=== PATIENT | male | born 1955 ===

== ENCOUNTER 2016-12-26 15:26 | Emergency (ER) | payer BC ==
[2016-12-26 16:00] VITALS: BP 145/88; PULSE 62; RESP 18; TEMP 98.8; O2SAT 98
--- NOTE | 2016-12-26 16:57 | C.PDOC ---
History Of Present Illness 61 yr old male presents to the ER requesting heroin detox. Patient reports he uses 4 bags a day. Denies fever, chest pain, SOB, nausea, vomiting, weakness or numbness. Time Seen by Provider: 12/26/16 16:22 Chief Complaint (Nursing): Substance Abuse History Per: Patient History/Exam Limitations: no limitations Onset/Duration Of Symptoms: Persistent Current Symptoms Are (Timing): Still Present Past Medical History Reviewed: Historical Data, Nursing Documentation, Vital Signs Vital Signs: Last Vital Signs Temp 98.8 F 12/26/16 15:54 Pulse 62 12/26/16 15:54 Resp 18 12/26/16 15:54 BP 145/88 12/26/16 15:54 Pulse Ox 98 12/26/16 17:44 - Medical History PMH: Anxiety, Asthma, Bronchitis, Fractures (WRIST/NOSE/LEG/CASTED NO SURGERY), Pneumonia (1 yr ago) - [facility] Procedures EXCISE EPIDIDYMIS CYST (04/06/14) EXCISION OF HYDROCELE (06/09/14) ING HERNIA REP-GRAFT NOS (04/06/14) INJECT/INFUSE NEC (05/20/13) LARYGNOSCOPY AND OTH TRACHEOSCOPY (03/04/14) SKIN & SUBQ INCISION NEC (03/04/14) Family History: States: No Known Family Hx - Social History Hx Tobacco Use: Yes Hx Alcohol Use: No (RECOVERED X9YRS) Hx Substance Use: Yes - Immunization History Hx Tetanus Toxoid Vaccination: No Hx Influenza Vaccination: No Hx Pneumococcal Vaccination: No Review Of Systems Except As Marked, All Systems Reviewed And Found Negative. Constitutional: Negative for: Fever Cardiovascular: Negative for: Chest Pain Respiratory: Negative for: Shortness of Breath Gastrointestinal: Negative for: Nausea, Vomiting Neurological: Negative for: Weakness, Numbness Physical Exam - Physical Exam Appears: Non-toxic, No Acute Distress Skin: Warm, Dry, No Rash Head: Atraumatic, Normacephalic Oral Mucosa: Moist Chest: Symmetrical, No Tenderness Cardiovascular: Rhythm Regular, No Murmur Respiratory: Normal Breath Sounds, No Rales, No Rhonchi, No Wheezing Extremity: Normal ROM, No Swelling Neurological/Psych: Oriented x3, Normal Speech, Normal Motor ED Course And Treatment O2 Sat by Pulse Oximetry: 98 Medical Decision Making Medical Decision Making: NOTE: Crisis made aware regarding patient. No detox beds available at the moment. Disposition - Disposition Referrals: Dane Salazar MD [Staff Provider] - Disposition: HOME/ ROUTINE Disposition Time: 16:57 Condition: GOOD Additional Instructions: Follow up with the medical doctor within 1-2 days. Return if worsened. 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 - Scribe Statement The provider has reviewed the documentation as recorded by the Scribe Kalpana Fields All medical record entries made by the Bayronibmarvin were at my direction and personally dictated by me. I have reviewed the chart and agree that the record accurately reflects my personal performance of the history, physical exam, medical decision making, and the department course for this patient. I have also personally directed, reviewed, and agree with the discharge instructions and disposition.
== END 2016-12-26 17:15 | disposition home or self-care (01) ==
LOC: C.ER 15:26
DX: F11.20 Opioid dependence, uncomplicated (principal)

== ENCOUNTER 2018-11-16 10:04 | Emergency (ER) | payer BC ==
[2018-11-16 10:06] VITALS: BMI 19.5
[2018-11-16 11:07] LABS: VENOUS BLOOD GAS BASE EXCESS 0.5 mmol/L (0.0-2.0); VENOUS BLOOD GAS PCO2 41 mmHg (40-60); VENOUS BLOOD GAS PO2 33 mm/Hg (30-55)
[2018-11-16 11:09] LABS: BASO # 0.1 K/uL (0.0-0.2); BASO % 0.7 % (0.0-2.0); EOS # 0.2 K/uL (0.0-0.7); HEMOGLOBIN 10.5 g/dL (12.0-18.0); LYMPH # 0.7 K/uL (1.0-4.3); LYMPH % 7.2 % (20.0-40.0); MEAN CELL VOLUME 91.6 fL (80.0-94.0); MEAN CORPUSCULAR HEMOGLOBIN 32.1 pg (27.0-31.0); MEAN CORPUSCULAR HGB CONC 35.1 g/dL (33.0-37.0); MEAN PLATELET VOLUME 8.8 fL (7.2-11.7); MONO # 0.8 K/uL (0.0-0.8); MONO % 8.2 % (0.0-10.0); NEUT % 81.9 % (50.0-75.0); RBC 3.28 Mil/uL (4.40-5.90); RED CELL DISTRIBUTION WIDTH 13.9 % (11.5-14.5); WHITE BLOOD COUNT 9.8 K/uL (4.8-10.8)
[2018-11-16 11:16] LABS: PLATELET COUNT 193 K/uL (130-400)
[2018-11-16 11:22] LABS: ALB/GLOB RATIO 1.3 (1.0-2.1); ALBUMIN 4.2 g/dL (3.5-5.0); ALT/SGPT 45 U/L (21-72); AST/SGOT 33 U/L (17-59); BLOOD UREA NITROGEN 14 mg/dL (9-20); CALCIUM 9.4 mg/dl (8.6-10.4); GFR NON-AFRICAN AMERICAN > 60
[2018-11-16 11:36] LABS: URINE BILIRUBIN 1+ (NEGATIVE); URINE BLOOD NEGATIVE (NEGATIVE); URINE CLARITY Clear (Clear); URINE COLOR Amber (YELLOW); URINE GLUCOSE (UA) NORMAL (Normal); URINE HYALINE CAST 0-2 /lpf (0-2); URINE LEUKOCYTE ESTERASE NEG Leu/uL (Negative); URINE PROTEIN 1+ mg/dL (NEGATIVE)
--- NOTE | 2018-11-16 11:42 | RAD ---
HISTORY: FEVER, COUGH COMPARISON: Chest x-ray performed 10/15/14 TECHNIQUE: Chest, one view. FINDINGS: LUNGS: Hyperinflation may be seen in setting of COPD. Mild biapical pleural thickening. No focal consolidation. Please note that chest x-ray has limited sensitivity for the detection of pulmonary masses. PLEURA: Blunting of the left costophrenic angle may reflect small effusion/pleural thickening. No definite pneumothorax . CARDIOVASCULAR: Borderline cardiomegaly. Atherosclerotic calcifications present. OSSEOUS STRUCTURES: Osseous demineralization. Degenerative changes. VISUALIZED UPPER ABDOMEN: Unremarkable. OTHER FINDINGS: None. IMPRESSION: Hyperinflation may be seen in the setting of COPD. Mild biapical pleural thickening. No focal consolidation. Blunting of the left costophrenic angle may reflect mild pleural thickening/small pleural effusion.
[2018-11-16] MEDS ORDERED: Albuterol 0.083% Inhal Sol (2.5 mg/3 mL) UD IH STA (11:43)
--- NOTE | 2018-11-16 11:54 | C.PDOC ---
History Of Present Illness 63 y/o malebrought in by ambulance for evaluation after he was seen leaning on a pole appearing drowsy. Patient states that he is currently on methadone and has been on it for several years now; states he just felt tired and leaned on the pole. He complains of generalized weakness and having cough for the past several days. Patient is a cigarette smoker. He denies chest pain but admits to occasional SOB. Patient also denies abdominal pain, nausea, vomiting, diarrhea, dysuria. Time Seen by Provider: 11/16/18 10:08 Chief Complaint (Nursing): Fever History Per: Patient, EMS History/Exam Limitations: no limitations Onset/Duration Of Symptoms: Days Current Symptoms Are (Timing): Still Present Associated Symptoms: Cough Severity: Mild Past Medical History Reviewed: Historical Data, Nursing Documentation, Vital Signs Vital Signs: Last Vital Signs Temp 101.8 F H 11/16/18 10:06 Pulse 108 H 11/16/18 10:06 Resp 20 11/16/18 10:06 BP 122/68 11/16/18 10:06 Pulse Ox 91 L 11/16/18 10:06 Primary Care Provider: Non [facility] Provider, - Medical History PMH: Anxiety, Asthma, Bronchitis, Fractures (WRIST/NOSE/LEG/CASTED NO SURGERY), Pneumonia (1 yr ago) - [facility] Procedures EXCISE EPIDIDYMIS CYST (04/06/14) EXCISION OF HYDROCELE (06/09/14) ING HERNIA REP-GRAFT NOS (04/06/14) INJECT/INFUSE NEC (05/20/13) LARYGNOSCOPY AND OTH TRACHEOSCOPY (03/04/14) SKIN & SUBQ INCISION NEC (03/04/14) Family History: States: No Known Family Hx - Social History Hx Tobacco Use: Yes Hx Alcohol Use: No (RECOVERED X9YRS) Hx Substance Use: Yes (former heroin) - Immunization History Hx Tetanus Toxoid Vaccination: No Hx Influenza Vaccination: No Hx Pneumococcal Vaccination: No Review Of Systems Constitutional: Positive for: Weakness (generalized). Negative for: Fever, Chills Cardiovascular: Negative for: Chest Pain Respiratory: Positive for: Cough, Shortness of Breath (occasional ) Gastrointestinal: Negative for: Nausea, Vomiting, Abdominal Pain, Diarrhea Genitourinary: Negative for: Dysuria Skin: Negative for: Rash Neurological: Negative for: Headache, Dizziness Physical Exam - Physical Exam Appears: Non-toxic, Chronically Ill, Other (speaking in full sentences) Skin: Normal Color, Warm, Dry Head: Atraumatic, Normacephalic Eye(s): bilateral: Normal Inspection Oral Mucosa: Moist Neck: Supple Cardiovascular: Rhythm Regular (mildly tachycardic), No Murmur Respiratory: No Accessory Muscle Use, No Rales, No Rhonchi, Wheezing (scattered wheezing bilaterally) Gastrointestinal/Abdominal: Normal Exam, Bowel Sounds, Soft, No Tenderness Extremity: Normal ROM, No Pedal Edema, No Calf Tenderness Pulses: Left Dorsalis Pedis: Normal, Right Dorsalis Pedis: Normal Neurological/Psych: Oriented x3 ED Course And Treatment - Laboratory Results Result Diagrams: 11/16/18 11:06 11/16/18 11:06 Lab Results: pO2 33 mm/Hg (30-55) 11/16/18 11:04 VBG pH 7.40 (7.32-7.43) 11/16/18 11:04 VBG pCO2 41 mmHg (40-60) 11/16/18 11:04 VBG HCO3 24.4 mmol/L 11/16/18 11:04 VBG Total CO2 26.7 mmol/L (22-28) 11/16/18 11:04 VBG O2 Sat (Calc) 68.4 % (40-65) H 11/16/18 11:04 VBG Base Excess 0.5 mmol/L (0.0-2.0) 11/16/18 11:04 VBG Potassium 3.9 mmol/L (3.6-5.2) 11/16/18 11:04 Sodium 137.0 mmol/l (132-148) 11/16/18 11:04 Chloride 106.0 mmol/L (98-107) 11/16/18 11:04 Glucose 91 mg/dl (75-110) 11/16/18 11:04 Lactate 0.9 mmol/L (0.7-2.1) 11/16/18 11:04 Total Bilirubin 0.7 mg/dL (0.2-1.3) 11/16/18 11:06 AST 33 U/L (17-59) 11/16/18 11:06 ALT 45 U/L (21-72) 11/16/18 11:06 Alkaline Phosphatase 146 U/L (38-126) H 11/16/18 11:06 Total Protein 7.6 g/dL (6.3-8.3) 11/16/18 11:06 Albumin 4.2 g/dL (3.5-5.0) 11/16/18 11:06 Globulin 3.4 gm/dL (2.2-3.9) 11/16/18 11:06 Albumin/Globulin Ratio 1.3 (1.0-2.1) 11/16/18 11:06 Urine Color Marla (YELLOW) 11/16/18 11:26 Urine Clarity Clear (Clear) 11/16/18 11:26 Urine pH 5.0 (5.0-8.0) 11/16/18 11:26 Ur Specific [place] 1.029 (1.003-1.030) 11/16/18 11:26 Urine Protein 1+ mg/dL (NEGATIVE) H 11/16/18 11:26 Urine Glucose (UA) Normal mg/dL (Normal) 11/16/18 11:26 Urine Ketones Trace mg/dL (NEGATIVE) 11/16/18 11:26 Urine Blood Negative (NEGATIVE) 11/16/18 11:26 Urine Nitrate Negative (NEGATIVE) 11/16/18 11:26 Urine Bilirubin 1+ (NEGATIVE) H 11/16/18 11:26 Urine Urobilinogen 2.0 mg/dL (0.2-1.0) 11/16/18 11:26 Ur Leukocyte Esterase Neg Manny/uL (Negative) 11/16/18 11:26 Urine WBC (Auto) 1 /hpf (0-5) 11/16/18 11:26 Urine RBC (Auto) 2 /hpf (0-3) 11/16/18 11:26 Hyaline Casts 0-2 /lpf (0-2) 11/16/18 11:26 O2 Sat by Pulse Oximetry: 91 (RA) Pulse Ox Interpretation: Abnormal - Other Rad CXR X-Ray: Read By Radiologist Interpretation: FINDINGS: LUNGS: Hyperinflation may be seen in setting of COPD. Mild biapical pleural thickening. No focal consolidation. Please note that chest x-ray has limited sensitivity for the detection of pulmonary masses. PLEURA: Blunting of the left costophrenic angle may reflect small effusion/pleural thickening. No definite pneumothorax . CARDIOVASCULAR: Borderline cardiomegaly. Atherosclerotic calcifications present. OSSEOUS STRUCTURES: Osseous demineralization. Degenerative changes. VISUALIZED UPPER ABDOMEN: Unremarkable. OTHER FINDINGS: None. IMPRESSION: Hyperinflation may be seen in the setting of COPD. Mild biapical pleural thickening. No focal consolidation. Blunting of the left costophrenic angle may reflect mild pleural thickening/small pleural effusion. Progress Note: Bloodwork, CXR, influenza swab, and EKG ordered and reviewed. Patient given PO tylenol for fever, albuterol nebulizer treatment. Reevaluation Time: 12:50 Reassessment Condition: Improved (On reassessment, patient is resting comfortably and reports feeling better. On exam, he has good air entry B/L without wheezing or accessory muslce use. P ox is improved 94%, likely c hronically low due to smoking/possible COPD. Rxs for azithromycin and albuterol inhaler given. Patient instructed to follow up with PMD/clinic in 1-2 days, and understands he should return to ED if symptoms worsen.) Disposition Counseled Patient/Family Regarding: Diagnosis, Need For Followup, Rx Given - Disposition Referrals: [facility] [Outside] Disposition: HOME/ ROUTINE Disposition Time: 12:50 Condition: STABLE Additional Instructions: FOLLOW UP IN THE MEDICAL CLINIC IN 1-2 DAYS USE MEDICATIONS DIRECTED RETURN TO ER IF SYMPTOMS WORSEN Prescriptions: Albuterol HFA [Ventolin HFA 90 mcg/actuation (8 g)] 0.09 mg IH Q4 PRN #1 puff PRN Reason: Wheezing Azithromycin [Zithromax] 250 mg PO DAILY #4 tab Instructions: Acute Bronchitis, Adult (DC) Forms: [employer] ([place]) - Clinical Impression Clinical Impression: Acute bronchitis, Methadone maintenance therapy patient - Scribe Statement The provider has reviewed the documentation as recorded by the Bayronibmarvin Lindsay Provider Attestation: All medical record entries made by the Bayronibmarvin were at my direction and personally dictated by me. I have reviewed the chart and agree that the record accurately reflects my personal performance of the history, physical exam, medical decision making, and the department course for this patient. I have also personally directed, reviewed, and agree with the discharge instructions and disposition.
[2018-11-16 11:56] LABS: BARBITURATES, UR NEGATIVE (NEGATIVE); BENZODIAZEPINES, UR NEGATIVE (NEGATIVE); OPIATES, UR NEGATIVE (NEGATIVE); PHENCYCLIDINE, UR NEGATIVE (NEGATIVE)
[2018-11-16 12:12] LABS: ANISOCYTOSIS SLIGHT; EOSINOPHIL 2 % (0-4); LYMPHOCYTE 6 % (20-40); MONOCYTE 5 % (0-10); NEUTROPHIL 87 % (50-75); PLATELET ESTIMATE NORMAL (NORMAL); TOTAL CELLS COUNTED 100
[2018-11-16 12:14] LABS: LARGE PLATELETS PRESENT
[2018-11-16 12:16] LABS: TOXIC GRANULATION PRESENT
[2018-11-16] MEDS ORDERED: Albuterol 0.083% Inhal Sol (2.5 mg/3 mL) UD ONE (12:20)
[2018-11-16 12:40] VITALS: BP 102/66; PULSE 92; RESP 21; TEMP 99.4
[2018-11-16 12:44] VITALS: O2SAT 91
== END 2018-11-16 13:04 | disposition home or self-care (01) ==
LOC: C.ER 10:04
DX: J20.9 Acute bronchitis, unspecified (principal); F17.210 Nicotine dependence, cigarettes, uncomplicated
CPT/HCPCS: 71045; 80053; 81001; 82803; 82948; 85025; 87040; 87086; 87804; 94640; 99285; G0480